=== PATIENT | female | born 1950 | race African-American/Black ===

== ENCOUNTER → 2018-10-25 | Outpatient (CLI) | payer MEDICARE ==
--- NOTE | 2018-10-25 11:06 | Diagnostic Imaging Report ---
Lumbar spine. INDICATION: Right hip and buttock pain. AP, lateral and spot lateral views were obtained. There are no prior studies available for comparison. FINDINGS: The lateral view reveals that there is slight retrolisthesis of L2 with respect to L3 as well as narrowing of L2-L3 disc space. There is also slight retrolisthesis of L1 and L2 and there is narrowing of the disc space at this level as well. There is mild narrowing of the disc space at L3-4. The other intervertebral spaces are fairly well-maintained. There does appear to be bony overgrowth of the facet joint on the left at L4-L5. There is no fracture or acute bony abnormality noted. There is no sign of a paraspinal mass. There is mild symmetrical sclerosis of the sacroiliac joints. Incidental note is made of severe degenerative disease involving the right hip joint. Reportedly, a right hip study is pending for further evaluation. IMPRESSION: 1. There is no evidence for an acute bony abnormality. 2. There is degenerative disc and bony disease at L1-L2, L2-L3 and involving the facet joint on the left at L4-L5. If there is clinical concern regarding spinal stenosis or nerve root encroachment, then MRI would be recommended for further study. 3. There is severe degenerative disease of the right hip. Right hip study is pending for further evaluation. Dictated by: Dictated on workstation # [id number]
--- NOTE | 2018-10-25 11:08 | Diagnostic Imaging Report ---
Indication: Right hip pain x2 weeks 2 views of the right hip There are degenerative changes present in both hips with joint space narrowing, synovial pitting of the articular surfaces and hypertrophic changes of the margins of the articular surfaces. There is no fracture or dislocation. Impression: Moderate degenerative changes present in both hips. Dictated by: Dictated on workstation # [id number]
== END ==
LOC: RAD FS 10:09
PROVIDERS: ATTEND Nurse Practitioner
DX: M16.0 Bilateral primary osteoarthritis of hip (principal); M51.36 Other intervertebral disc degeneration, lumbar region; M89.9 Disorder of bone, unspecified
CPT/HCPCS: 72100; 73502